=== PATIENT | female | born 1955 | race Caucasian/White ===

== ENCOUNTER 2025-03-15 16:33 | Emergency (ER) | payer OTHER ==
[~2025-03-15] VITALS: Ht 152.4 cm; Wt 70.9 kg
[2025-03-15 18:18] VITALS: BP 151/54; PULSE 68; RESP 16; TEMP 98.4; O2SAT 97
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
[2025-03-15] MEDS: TETANUS-DIPTH-ACEL PERTUSSIS 0.5ML SYR Tdap IM ONE (18:45)
--- NOTE | 2025-03-15 19:10 | DVH ---
CLINICAL INDICATION: LEFT ELBOW PAIN TECHNIQUE: 4 radiographic views of the left elbow were obtained. Comparison: None FINDINGS/IMPRESSION: There is no evidence of acute fracture or dislocation. Small posterior olecranon bony spur. Short tani ear densities within the soft tissues posterior to the elbow. Correlate for Possible foreign bodies versus nonspecific soft tissue calcification versus artifact. The visualized joint space is well maintained. The alignment is anatomical.
[2025-03-15] MEDS ORDERED: ACET500T58 PO (19:25)
[2025-03-15] MEDS ORDERED: CEPH500C PO (19:25)
--- NOTE | 2025-03-15 19:27 | DVH ---
EXAM: CT HEAD WITHOUT CONTRAST; DATE: 03/15/2025 06:36 PM HISTORY: HEAD INJURY COMPARISON: None TECHNIQUE: Axial images were obtained and reformatted in coronal and sagittal planes. All CT scans at this medical facility are performed using dose modulation techniques as appropriate t o a performed exam including the following: Automated exposure control was utilized; adjustment of th e MA and/or KV according to patient size; and use of iterative reconstruction technique. CT Dose: CTDI volume is 53.38 mGy. Dose-length product is 945.26 mGy*cm FINDINGS: Supratentorial Region: No evidence for large acute territorial ischemia. No intracranial hemorrhage is noted. Posterior Fossa: No acute abnormality. Brainstem: Unremarkable. Sellar/Suprasellar Region: Unremarkable. Ventricles, Cisterns, Sulci: Age-appropriate. Orbits: Unremarkable. Paranasal Sinuses: Unremarkable. Mastoid Air Cells: Unremarkable. Vasculature: Unremarkable. Bones/Soft Tissues: No acute abnormality. Other: None. IMPRESSION: 1. No acute intracranial process.
--- NOTE | 2025-03-15 19:29 | DVH ---
Procedure: CT CERVICAL WITHOUT CONTRAST 03/15/2025 06:39 PM Indication: NECK PAIN Comparison Study: None. Technique: Axial images were obtained and reformatted in coronal and sagittal planes. All CT scans at this medical facility are performed using dose modulation techniques as appropriate t o a performed exam including the following: Automated exposure control was utilized; adjustment of th e MA and/or KV according to patient size; and use of iterative reconstruction technique. CT Dose: CTDI volume is 20.7 mGy. Dose-length product is 414.14 mGy*cm FINDINGS: Bones: The vertebrae are normal in height. Normal alignment of the vertebrae. Lateral masses C1 and C2 are well aligned. The posterior facet joints are well aligned. Multilevel degenerative disc diseas e, uncovertebral and posterior facet arthropathy of the cervical spine noted. Ossification of the lig amentum nuchae noted at L5 level. There is thickening and calcification of the transverse ligament at the level of the odontoid. Soft tissues: Paraspinal and prevertebral soft tissues are within normal limits. IMPRESSION: 1. Straightening of normal lordosis that could be positional, reflect muscle spasm or pain. Correlate clinically. 2. No acute osseous abnormality.
== END 2025-03-15 19:50 | disposition home or self-care (01) ==
LOC: EDBD 16:33 → ER 16:49
DX: S51.012A Laceration without foreign body of left elbow, initial encounter (principal); S01.112A Laceration without foreign body of left eyelid and periocular area, initial encounter; S16.1XXA Strain of muscle, fascia and tendon at neck level, initial encounter; E11.9 Type 2 diabetes mellitus without complications; I10 Essential (primary) hypertension; E78.5 Hyperlipidemia, unspecified; Z79.899 Other long term (current) drug therapy; Z88.5 Allergy status to narcotic agent; V89.2XXA Person injured in unspecified motor-vehicle accident, traffic, initial encounter; Y93.89 Activity, other specified; Y92.89 Other specified places as the place of occurrence of the external cause; Y99.8 Other external cause status
CPT/HCPCS: 12001; 70450; 72125; 73080; 90471; 90715; 99285; J2003